=== PATIENT | male | born 1975 | race Caucasian/White ===

== ENCOUNTER 2016-08-26 20:09 | Emergency (ER) | payer OTHER ==
[~2016-08-26] VITALS: Ht 200.7 cm; Wt 115.8 kg
[2016-08-26 20:13] VITALS: Ht 200.7 cm; Wt 115.8 kg
[2016-08-26] MEDS ORDERED: SODIUM CHLORIDE 0.9% 1000ML 1,000 ML IV STA (20:28)
[2016-08-26 20:30] VITALS: TEMP 36.6; O2SAT 93
[2016-08-26] MEDS ORDERED: LORAZEPAM 2 MG/ML 1 ML VIAL IV STA (20:30)
[2016-08-26 20:35] LABS: HEMATOCRIT 38.7 % (42-52); MEAN CELL VOLUME 111.5 fL (80-100); MEAN CORPUSCULAR HEMOGLOBIN 39.8 pg (25-34); MEAN CORPUSCULAR HGB CONC 35.7 g/dl (32-36); MEAN PLATELET VOLUME 9.9 fL (7.4-10.4); PLATELET COUNT 102 K/uL (130-400); RED BLOOD COUNT 3.47 M/uL (4.7-6.1); WHITE BLOOD COUNT 13.08 K/uL (4.8-10.8)
[2016-08-26] MEDS ORDERED: THIAMINE HCL 100 MG/ML 2 ML VIAL IV STA (20:41)
[2016-08-26 20:45] LABS: INR 1.3 (0.9-1.1); PARTIAL THROMBOPLASTIN RATIO 1.1; PROTHROMBIN TIME (PATIENT) 14.6 SECONDS (9.0-12.0)
--- NOTE | 2016-08-26 20:46 | DIAGNOSTIC IMAGING REPORT ---
SINGLE VIEW CHEST CLINICAL HISTORY: Seizure. FINDINGS: An AP, portable, upright chest radiograph is obtained. No prior studies are available for comparison at the time of dictation. The examination is degraded by portable technique and patient rotation. The cardiomediastinal silhouette is unremarkable. The lungs and pleural spaces are clear. No pneumothorax is seen. The bony thorax is grossly intact. IMPRESSION: No active disease in the chest. Electronically signed by: Armen Gray M.D. 08/26/2016 8:44 PM Dictated Date/Time: 08/26/2016 8:44 PM
[2016-08-26 20:48] LABS: BUN/CREATININE RATIO 3.9 (10-20); CREATININE 1.3 mg/dl (0.60-1.40); MAGNESIUM 1.4 mg/dl (1.8-2.4); POTASSIUM 3.1 mmol/L (3.5-5.1)
[2016-08-26] MEDS ORDERED: MULT-506 PO (20:50)
[2016-08-26] MEDS ORDERED: MAGNESIUM SULFATE 1GM / D5W 1 GM BAG IV STA (20:54)
[2016-08-26 20:58] LABS: BASO % 0.2 %; BASO ABS # 0.03 K/uL (0-0.2); COMPLETE YES; EOS % 0.3 %; IG% 0.6 %; LYMPH % 18.9 %; LYMPH ABS # 2.47 K/uL (1.2-3.4); MONO % 6.5 %; NEUT % 73.5 %; SPHEROCYTE 1+
[2016-08-26 20:59] LABS: PHOSPHORUS 3.1 mg/dl (2.5-4.9); THYROID STIMULATING HORMONE 4.45 uIu/ml (0.300-4.500)
--- NOTE | 2016-08-26 21:04 | DIAGNOSTIC IMAGING REPORT ---
CT SCAN OF THE BRAIN WITHOUT IV CONTRAST CLINICAL HISTORY: Seizure. COMPARISON STUDY: No priors. TECHNIQUE: Unenhanced axial CT scan of the brain is performed from the vertex to the skull base. Automated dose control exposure was utilized. CT DOSE: 614.27 mGy.cm FINDINGS: Brain parenchyma: The brain parenchyma is normal in appearance. There is no hemorrhage, mass effect, or evidence of acute territorial ischemia by CT criteria. López-white matter is preserved. No extra-axial fluid collection is seen. Ventricles, sulci, cisterns: Normal in configuration. Intracranial vasculature: The visualized intracranial vasculature at the skull base is normal in appearance. Calvarium: Unremarkable. Sinuses and mastoids: The visualized paranasal sinuses are clear. The mastoid air cells are well pneumatized. Orbits: The bony orbits are grossly intact. IMPRESSION: No acute intracranial abnormality. Electronically signed by: Armen Gray M.D. 08/26/2016 9:03 PM Dictated Date/Time: 08/26/2016 9:01 PM
--- NOTE | 2016-08-26 21:12 | EMERGENCY ROOM VISIT NOTE ---
History Report prepared by Lupe: Mary Anderson Under the Supervision of: Dr. Jaxson Jones D.O. First contact with patient: 20:18 Chief Complaint: SEIZURE Stated Complaint: seizure Nursing Triage Summary: patient was witnessed having a seizure. witness states that he was in car and started with a yawn that turned into a load moan then his head started shaking and then his head went back and was stomping foot in the car. Patient doesn't remember where he was coming from what happened. had been feeling fine prior to this. no seizure history has had syncopal episodes. EMT states he was post ectal when they arrived. History of Present Illness The patient is a 41 year old male who presents to the Emergency Room with complaints of an episode of a seizure occurring [employer]. The patient is visiting the area from [place] for work. 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 He left the event with his colleague. He was the passenger and she was driving. She states that the patient started yelling and hitting his head. He was exhibiting seizure-like activity. The patient does not have any memory of this episode. He was confused upon arrival in the ED. The patient denies any personal history of seizures. He bit his tongue during the episode tonight. He denies headache, nausea, vomiting, chest pain, and shortness of breath. The patient states that he typically drinks multiple alcoholic beverages a day. He has not had any alcohol today. He has never had an alcohol related seizure. Source of History: patient, friend Onset: [employer] Position: other (global) Quality: other (seizure-like) Timing: other (episode) Associated Symptoms: + LOC, No SOB, No chest pain, No headache, No nausea, No vomiting Review of Systems See HPI for pertinent positives & negatives. A total of 10 systems reviewed and were otherwise negative. Past Medical & Surgical Medical Problems: (1) Depression Family History No pertinent history stated. Social History Smoking Status: Current Some Day Smoker Alcohol Use: heavy Occupation Status: employed Current/Historical Medications Scheduled Clonidine Hcl (Catapres-Tts), 1 PATCH TD WK Multivitamin (Multivitamin), 1 TAB PO DAILY Oxazepam (Serax), 15 MG PO TID Allergies Coded Allergies: Penicillins (Verified Allergy, Intermediate, Rash, 08/26/16) Physical Exam Vital Signs Date Time Temp Pulse Resp B/P Pulse Ox O2 Delivery O2 Flow Rate FiO2 08/27/16 00:07 89 18 146/87 96 08/26/16 22:15 102 20 165/91 96 08/26/16 20:30 93 Room Air 08/26/16 20:30 36.6 109 22 174/101 93 Room Air 08/26/16 20:30 96 Room Air 08/26/16 20:15 109 08/26/16 20:13 36.6 106 22 174/101 97 Room Air Physical Exam GENERAL: Patient is awake, alert, somewhat anxious appearing and tremulous. EYES: The conjunctivae are clear. The pupils are round and reactive. EARS, NOSE, MOUTH AND THROAT: The nose is without any evidence of any deformity. Mucous membranes are dry tongue is midline. There was a laceration on the right side of the tongue, no active bleeding was noted. NECK: The neck is nontender and supple. RESPIRATORY: Normal respiratory effort is noted there is no evidence of wheezing rhonchi or rales CARDIOVASCULAR: Regular rate and rhythm noted there no murmurs rubs or gallops normal S1 normal S2 GASTROINTESTINAL: The abdomen is soft. Bowel sounds are present in all quadrants. Abdomen is nontender MUSCULOSKELETAL/EXTREMITIES: There is no evidence of gross deformity full range of motion is noted in the hips and shoulders SKIN: There is no obvious evidence of any rash. There are no petechiae, pallor or cyanosis noted. NEUROLOGIC: Patient is awake alert and oriented x3 strength is symmetric patellar reflexes are 2+ bilaterally. Fine resting tremor noted in both upper extremities. Medical Decision & Procedures ER Provider Diagnostic Interpretation: Radiology results as stated below per my review and radiologist interpretation: CT SCAN OF THE BRAIN WITHOUT IV CONTRAST CLINICAL HISTORY: Seizure. COMPARISON STUDY: No priors. TECHNIQUE: Unenhanced axial CT scan of the brain is performed from the vertex to the skull base. Automated dose control exposure was utilized. CT DOSE: 614.27 mGy.cm FINDINGS: Brain parenchyma: The brain parenchyma is normal in appearance. There is no hemorrhage, mass effect, or evidence of acute territorial ischemia by CT criteria. López-white matter is preserved. No extra-axial fluid collection is seen. Ventricles, sulci, cisterns: Normal in configuration. Intracranial vasculature: The visualized intracranial vasculature at the skull base is normal in appearance. Calvarium: Unremarkable. Sinuses and mastoids: The visualized paranasal sinuses are clear. The mastoid air cells are well pneumatized. Orbits: The bony orbits are grossly intact. IMPRESSION: No acute intracranial abnormality. Electronically signed by: Armen Gray M.D. 08/26/2016 9:03 PM Dictated Date/Time: 08/26/2016 9:01 PM SINGLE VIEW CHEST CLINICAL HISTORY: Seizure. FINDINGS: An AP, portable, upright chest radiograph is obtained. No prior studies are available for comparison at the time of dictation. The examination is degraded by portable technique and patient rotation. The cardiomediastinal silhouette is unremarkable. The lungs and pleural spaces are clear. No pneumothorax is seen. The bony thorax is grossly intact. IMPRESSION: No active disease in the chest. Electronically signed by: Armen Gray M.D. 08/26/2016 8:44 PM Dictated Date/Time: 08/26/2016 8:44 PM Laboratory Results 08/26/16 20:02 Red Blood Count 3.47, Mean Corpuscular Volume 111.5, Mean Corpuscular Hemoglobin 39.8, Mean Corpuscular Hemoglobin Concent 35.7, Mean Platelet Volume 9.9, Neutrophils (%) (Auto) 73.5, Lymphocytes (%) (Auto) 18.9, Monocytes (%) ( Auto) 6.5, Eosinophils (%) (Auto) 0.3, Basophils (%) (Auto) 0.2, Neutrophils # ( Auto) 9.61, Lymphocytes # (Auto) 2.47, Monocytes # (Auto) 0.85, Eosinophils # ( Auto) 0.04, Basophils # (Auto) 0.03 08/26/16 20:02 Test 08/26/16 20:02 08/26/16 22:56 White Blood Count 13.08 K/uL (4.8-10.8) Red Blood Count 3.47 M/uL (4.7-6.1) Hemoglobin 13.8 g/dL (14.0-18.0) Hematocrit 38.7 % (42-52) Mean Corpuscular Volume 111.5 fL (80-100) Mean Corpuscular Hemoglobin 39.8 pg (25-34) Mean Corpuscular Hemoglobin Concent 35.7 g/dl (32-36) Platelet Count 102 K/uL (130-400) Mean Platelet Volume 9.9 fL (7.4-10.4) Neutrophils (%) (Auto) 73.5 % Lymphocytes (%) (Auto) 18.9 % Monocytes (%) (Auto) 6.5 % Eosinophils (%) (Auto) 0.3 % Basophils (%) (Auto) 0.2 % Neutrophils # (Auto) 9.61 K/uL (1.4-6.5) Lymphocytes # (Auto) 2.47 K/uL (1.2-3.4) Monocytes # (Auto) 0.85 K/uL (0.11-0.59) Eosinophils # (Auto) 0.04 K/uL (0-0.5) Basophils # (Auto) 0.03 K/uL (0-0.2) RDW Standard Deviation 63.0 fL (36.4-46.3) RDW Coefficient of Variation 15.5 % (11.5-14.5) Immature Granulocyte % (Auto) 0.6 % Immature Granulocyte # (Auto) 0.08 K/uL (0.00-0.02) Macrocytosis PRESENT Spherocytes 1+ Prothrombin Time 14.6 SECONDS (9.0-12.0) Prothromb Time International Ratio 1.3 (0.9-1.1) Activated Partial Thromboplast Time 29.1 SECONDS (21.0-31.0) Partial Thromboplastin Ratio 1.1 Anion Gap 23.0 mmol/L (3-11) Est Creatinine Clear Calc Drug Dose 108.5 ml/min Estimated GFR () 78.6 Estimated GFR (Non- 67.8 BUN/Creatinine Ratio 3.9 (10-20) Calcium Level 9.0 mg/dl (8.5-10.1) Phosphorus Level 3.1 mg/dl (2.5-4.9) Magnesium Level 1.4 mg/dl (1.8-2.4) Total Bilirubin 5.1 mg/dl (0.2-1) Direct Bilirubin 2.5 mg/dl (0-0.2) Aspartate Amino Transf (AST/SGOT) 157 U/L (15-37) Alanine Aminotransferase (ALT/SGPT) 51 U/L (12-78) Alkaline Phosphatase 129 U/L (45-117) Total Protein 9.5 gm/dl (6.4-8.2) Albumin 4.3 gm/dl (3.4-5.0) Thyroid Stimulating Hormone (TSH) 4.450 uIu/ml (0.300-4.500) Urine Color YELLOW Urine Appearance CLEAR (CLEAR) Urine pH 8.0 (4.5-7.5) Urine Specific [place] 1.008 (1.000-1.030) Urine Protein NEG (NEG) Urine Glucose (UA) NEG (NEG) Urine Ketones NEG (NEG) Urine Occult Blood NEG (NEG) Urine Nitrite NEG (NEG) Urine Bilirubin NEG (NEG) Urine Urobilinogen NEG (NEG) Urine Leukocyte Esterase NEG (NEG) Laboratory results per my review. Medications Administered Medications (Trade) Dose Ordered Sig/James Route Start Time Stop Time Status Last Admin Dose Admin Sodium Chloride (Nss 1000ml) 1,000 ml @ 999 mls/hr Q1H1M STAT IV 08/26/16 20:28 08/26/16 21:28 DC 08/26/16 20:42 999 MLS/HR Lorazepam (Ativan Inj) 1 mg NOW STAT IV 08/26/16 20:30 08/26/16 20:33 DC 08/26/16 20:42 1 MG Thiamine HCl (Vitamin B-1 Inj) 100 mg NOW STAT IV 08/26/16 20:41 08/26/16 20:42 DC 08/26/16 22:03 100 MG Magnesium Sulfate (Magnesium Sulfate) 2 gm NOW STAT IV 08/26/16 20:54 08/26/16 20:55 DC 08/26/16 22:03 2 GM Clonidine HCl (Rdisqxbx-Crq-5 0.1mg/24hr Patch) 1 patch CQWK STAT TD 08/26/16 23:01 08/26/16 23:02 DC 08/26/16 23:32 1 PATCH Lorazepam (Ativan 1MG Home Pack) 1 homepack UD ONCE PO 08/26/16 23:45 08/26/16 23:46 DC 08/26/16 23:58 1 HOMEPACK ECG Indication: other (seizure) Rate (beats per minute): 109 Rhythm: sinus tachycardia Findings: no acute ischemic change, no ectopy Comparison ECG Date: no prior available ED Course 2018: The patient was evaluated in room B5. A complete history and physical examination were performed. 2027: NSS 1000 ml @ 999 mls/hr IV 2030: Lorazepam 1 mg IV 2040: Thiamine HCl 100 mg IV 2053: Magnesium sulfate 2 gm IV 2238: I reassessed the patient at this time. He is feeling better and resting comfortably. I discussed the results and treatment plan with the patient. I answered all pertaining questions that he had. He expressed understanding and verbalized agreement. He is going to decide if he wants to go home. 2301: Clonidine HCl 1 patch TD 2341: The patient would like to be discharged home. 2345: Lorazepam 1mg PO homepa Medical Decision Differential diagnosis: Etiologies such as infection, hypoglycemia, electrolyte abnormalities, cardiac sources, intracerebral event, trauma, toxicologic, neurologic, as well as others were entertained. Nursing notes reviewed. The patient's friend gave further history. The patient is a 41-year-old male who presented to the emergency department after suffering a seizure. The patient has a significant alcohol history and appeared to have a physical exam consistent with alcohol-related seizures. He was treated with IV fluids as well as IV Ativan. He was also placed on a clonidine patch. I discussed the patient's laboratory and radiographic studies with him. On subsequent reevaluation he was feeling much better. He states that he would like to stop drinking alcohol. He was encouraged to stay in the ER and be evaluated by the hospitalist for possible inpatient management but he does not wish to stay in the hospital at this time because he is not from the area. He was given a prescription for clonidine patches as well as Serax. He was encouraged to avoid any further alcoholic beverages. He was also encouraged to not operate any heavy machinery including driving a vehicle until he was cleared by his doctor. Otherwise he was encouraged to return to the emergency department immediately if symptoms change worsen or the need arises. The nursing staff also had a long discussion with the patient about staying in the hospital for management of this condition but he still wished to be discharged. Impression Primary Impression: Alcohol related seizure Additional Impression: Hyperbilirubinemia Scribe Attestation The scribe's documentation has been prepared under my direction and personally reviewed by me in its entirety. I confirm that the note above accurately reflects all work, treatment, procedures, and medical decision making performed by me. Departure Information Dispostion Home / Self-Care Prescriptions Clonidine Hcl (CATAPRES-TTS) 0.1 Mg/24 Hr Dis 1 PATCH TD WK, #30 PATCH Prov: Jaxson Jones, DO 08/26/16 Oxazepam (Serax) 30 Mg Cap 15 MG PO TID, #60 CAP Prov: Jaxson Jones, DO 08/26/16 Referrals No Doctor, Assigned Forms HOME CARE DOCUMENTATION FORM, IMPORTANT VISIT INFORMATION Patient Instructions ED Seizure Alcohol Withdrawal, [facility] Additional Instructions Continue all medications as prescribed. Continue to avoid any further alcoholic beverages. Do not operate any heavy machinery including driving a vehicle until your cleared by her primary care physician. Return to the emergency department immediately if symptoms change worsen or if the need arises. Problem Qualifiers
[2016-08-26] MEDS ORDERED: CLON0.1D5 TD ×2 (23:01→23:10)
[2016-08-26] MEDS ORDERED: OXAZ30CA2 PO (23:01)
[2016-08-26] MEDS ORDERED: CLONIDINE HCL 0.1 MG/24 HR TRANSDERM SYS TD STA (23:01)
[2016-08-26 23:11] LABS: URINE APPEARANCE CLEAR (CLEAR); URINE BILIRUBIN NEG (NEG); URINE COLOR YELLOW; URINE NITRITE NEG (NEG); URINE SPECIFIC GRAVITY 1.008 (1.000-1.030); UROBILINOGEN NEG (NEG)
[2016-08-26 23:15] LABS: MANUAL MICROSCOPIC REQUIRED? NO; REVIEW REQ? NO
[2016-08-26] MEDS ORDERED: ATIVAN 1MG HOMEPACK PO ONE (23:45)
[2016-08-27 00:07] VITALS: BP 146/87; PULSE 89; O2SAT 96
== END 2016-08-27 00:07 | disposition home or self-care (01) ==
LOC: EDBD 20:09 → C.EDB 20:13
DX: R56.9 Unspecified convulsions (principal); F10.129 Alcohol abuse with intoxication, unspecified; E80.7 Disorder of bilirubin metabolism, unspecified; F32.9 Major depressive disorder, single episode, unspecified; F17.200 Nicotine dependence, unspecified, uncomplicated; Z79.899 Other long term (current) drug therapy; Z88.0 Allergy status to penicillin